=== PATIENT | female | born 1965 | race African-American/Black ===

== ENCOUNTER 2020-10-31 21:33 | Emergency (ER) | payer MEDICAID, OTHER ==
[~2020-10-31] VITALS: Ht 165.1 cm; Wt 73.0 kg
[~2020-10-31 21:33] MED LIST: NORVASC
[2020-10-31] MEDS ORDERED: SODIUM CHLORIDE 0.9% 1,000 ML IV ONE (23:15)
[2020-10-31 23:30] LABS: BASOPHILS % 0.8 % (0.0-2.0); EOSINOPHILS % 1.9 % (0.0-5.0); HEMOGLOBIN. 10.1 g/dL (12.0-16.0); LYMPHOCYTES % 38.1 % (20.0-50.0); MEAN CORPUSCULAR VOLUME 69.9 fL (81.0-99.0); MEAN PLATELET VOLUME 9.6 fl (7.4-10.4); MONOCYTES % 8.6 % (2.0-8.0); NEUTROPHILS % 50.6 % (40.0-76.0); PLATELET 190 x1000/uL (130-400); RED BLOOD CELL COUNT 4.58 mill/uL (4.2-5.4); RED CELL DISTRIBUTION WIDTH 15.6 % (11.6-14.6)
[2020-10-31 23:36] LABS: CHLORIDE 106 mEq/L (98-107)
[2020-10-31 23:44] LABS: PLATELET ESTIMATE NORMAL
[2020-11-01 04:21] VITALS: BP 106/66
== END 2020-11-01 05:20 | disposition short-term general hospital (02) ==
LOC: ER 21:33 → CANBEDREQ 11-01 07:44
DX: R55 Syncope and collapse (principal); R07.2 Precordial pain; R73.9 Hyperglycemia, unspecified; I25.10 Atherosclerotic heart disease of native coronary artery without angina pectoris; D64.9 Anemia, unspecified; Z75.1 Person awaiting admission to adequate facility elsewhere
CPT/HCPCS: 36415; 71045; 80053; 82962; 83880; 84484; 85025; 93005; 96360; 99285; J7030

== ENCOUNTER 2021-12-20 14:17 | Inpatient (IN) | payer MEDICAID, OTHER ==
[~2021-12-20] VITALS: Ht 165.1 cm; Wt 81.6 kg
[2021-12-20 14:59] LABS: BASOPHILS % 0.3 % (0.0-2.0); EOSINOPHILS % 0.8 % (0.0-5.0); HEMATOCRIT. 34.3 % (36.0-48.0); HEMOGLOBIN. 10.5 g/dL (12.0-16.0); LYMPHOCYTES % 22.9 % (20.0-50.0); MEAN CORPUSCULAR HEMOGLOBIN 22.8 pg (28.0-32.0); MEAN CORPUSCULAR VOLUME 74.4 fL (81.0-99.0); MEAN PLATELET VOLUME 9.8 fl (7.4-10.4); MONOCYTES % 5.4 % (2.0-8.0); NEUTROPHILS % 70.6 % (40.0-76.0); PLATELET 187 x1000/uL (130-400); RED BLOOD CELL COUNT 4.62 mill/uL (4.2-5.4); RED CELL DISTRIBUTION WIDTH 16.2 % (11.6-14.6)
[2021-12-20] MEDS ORDERED: SODIUM CHLORIDE 0.9% 1,000 ML IV ONE ×2 (15:00→17:15)
[2021-12-20 15:07] LABS: CHLORIDE 103 mEq/L (98-107)
[2021-12-20 15:18] LABS: BETA HYDROXYBUTYRATE 0.1 mMol/L (0.0-0.3)
[2021-12-20] MEDS ORDERED: DEXTROSE 50% WATER 50ML SYRINGE IV PRN (16:45)
[2021-12-20 16:57] LABS: CLARITY URINE CLEAR (CLEAR); COLOR URINE YELLOW (YELLOW); KETONES URINE NEGATIVE (NEGATIVE); LEUKOCYTE ESTERASE URINE NEGATIVE (NEGATIVE); NITRITE URINE NEGATIVE (NEGATIVE); OCCULT BLOOD URINE NEGATIVE (NEGATIVE); PROTEIN URINE NEGATIVE (NEGATIVE); SPECIFIC GRAVITY URINE 1.017 (1.005-1.030); UROBILINOGEN URINE 0.2 E.U./dL (0.2-1.0)
[2021-12-20] MEDS: BLOOD SUGAR DIAGNOSTIC STRIP TEST SCH ×2 (17:07→20:59)
[2021-12-20] MEDS: INSULIN LISPRO 100 UNITS/ML SUBCUT SCH ×2 (17:25→21:00)
[2021-12-21 04:30] VITALS: BP 136/89
[2021-12-21] MEDS ORDERED: LIP40 PO (05:13)
[2021-12-21] MEDS ORDERED: AMLO10TA4 PO (05:13)
[2021-12-21] MEDS ORDERED: GLIP5TAB12 PO (05:13)
[2021-12-21] MEDS ORDERED: ACETAMINOPHEN 325MG TABLET PO PRN (05:45)
[2021-12-21] MEDS ORDERED: DEXTROSE 50% WATER 50ML SYRINGE IV PRN (05:45)
[2021-12-21] MEDS ORDERED: ONDANSETRON HCL 4MG TABLET PO PRN (05:45)
[2021-12-21] MEDS: BLOOD SUGAR DIAGNOSTIC STRIP TEST SCH ×5 (06:43→21:00)
[2021-12-21 08:00] VITALS: BP 143/87
[2021-12-21] MEDS ORDERED: AMLODIPINE 10MG TABLET PO SCH (09:00)
[2021-12-21 09:06] LABS: BASOPHILS % 0.6 % (0.0-2.0); EOSINOPHILS % 2.5 % (0.0-5.0); HEMATOCRIT. 32.2 % (36.0-48.0); HEMOGLOBIN. 9.9 g/dL (12.0-16.0); LYMPHOCYTES % 32.4 % (20.0-50.0); MEAN CORPUSCULAR HEMOGLOBIN 22.4 pg (28.0-32.0); MEAN CORPUSCULAR VOLUME 72.8 fL (81.0-99.0); MEAN PLATELET VOLUME 9.4 fl (7.4-10.4); MONOCYTES % 6.2 % (2.0-8.0); NEUTROPHILS % 58.3 % (40.0-76.0); PLATELET 203 x1000/uL (130-400); RED BLOOD CELL COUNT 4.42 mill/uL (4.2-5.4); RED CELL DISTRIBUTION WIDTH 15.9 % (11.6-14.6)
[2021-12-21 09:14] LABS: CHLORIDE 103 mEq/L (98-107)
[2021-12-21 09:21] LABS: HDL CHOLESTEROL 52 mg/dL (40-59); LDL CHOLESTEROL 69 mg/dL (5-100)
[2021-12-21] MEDS: ASPIRIN 81MG TABLET PO SCH (09:46)
[2021-12-21] MEDS: INSULIN LISPRO 100 UNITS/ML SUBCUT SCH ×4 (09:47→22:19)
[2021-12-21] MEDS: METFORMIN HCL 500MG TABLET PO SCH ×2 (09:47→18:30)
[2021-12-21] MEDS: INSULIN GLARGINE 100 UNITS/ML SUBCUT SCH ×2 (11:42→22:18)
[2021-12-21 12:00] VITALS: BP 145/88
[2021-12-21 16:00] VITALS: BP 123/78
[2021-12-21 20:00] VITALS: BP 129/84
[2021-12-21] MEDS: ATORVASTATIN CALCIUM 40MG TABLET PO SCH (22:16)
[2021-12-21] MEDS: DILTIAZEM HCL 60MG TABLET PO SCH (22:20)
[2021-12-22] VITALS: BP 114/78
[2021-12-22 04:00] VITALS: BP 122/69
[2021-12-22 06:24] LABS: BASOPHILS % 0.5 % (0.0-2.0); CHLORIDE 104 mEq/L (98-107); EOSINOPHILS % 2.5 % (0.0-5.0); HEMOGLOBIN. 10.3 g/dL (12.0-16.0); LYMPHOCYTES % 38.1 % (20.0-50.0); MEAN CORPUSCULAR HEMOGLOBIN 22.4 pg (28.0-32.0); MEAN CORPUSCULAR VOLUME 72.1 fL (81.0-99.0); MEAN PLATELET VOLUME 9.4 fl (7.4-10.4); MONOCYTES % 7.5 % (2.0-8.0); NEUTROPHILS % 51.4 % (40.0-76.0); PLATELET 216 x1000/uL (130-400); RED BLOOD CELL COUNT 4.58 mill/uL (4.2-5.4); RED CELL DISTRIBUTION WIDTH 16.3 % (11.6-14.6)
[2021-12-22] MEDS: INSULIN LISPRO 100 UNITS/ML SUBCUT SCH ×4 (07:50→21:00)
[2021-12-22] MEDS: DILTIAZEM HCL 60MG TABLET PO SCH (08:03)
[2021-12-22] MEDS: BLOOD SUGAR DIAGNOSTIC STRIP TEST SCH ×4 (08:03→21:34)
[2021-12-22 08:15] VITALS: BP 111/81
[2021-12-22] MEDS: ASPIRIN 81MG TABLET PO SCH (08:31)
[2021-12-22] MEDS: METFORMIN HCL 500MG TABLET PO SCH ×2 (08:31→18:44)
[2021-12-22] MEDS: INSULIN GLARGINE 100 UNITS/ML SUBCUT SCH ×2 (11:50→21:34)
[2021-12-22 12:00] VITALS: BP 111/83
[2021-12-22] MEDS: DILTIAZEM HCL 180MG CAPSULE CD 24HR PO SCH (13:00)
[2021-12-22] MEDS ORDERED: DILT180C66 PO (16:24)
[2021-12-22] MEDS ORDERED: ASPI-1160 PO (16:24)
[2021-12-22 20:00] VITALS: BP 126/85
[2021-12-22] MEDS: ATORVASTATIN CALCIUM 40MG TABLET PO SCH (21:22)
[2021-12-23] VITALS: BP 128/88
[2021-12-23 04:00] VITALS: BP 106/76
[2021-12-23] MEDS: BLOOD SUGAR DIAGNOSTIC STRIP TEST SCH (06:55)
[2021-12-23] MEDS: METFORMIN HCL 500MG TABLET PO SCH (06:56)
[2021-12-23] MEDS: INSULIN LISPRO 100 UNITS/ML SUBCUT SCH (07:01)
[2021-12-23 08:00] VITALS: BP 128/82
[2021-12-23 08:07] LABS: BASOPHILS % 0.4 % (0.0-2.0); EOSINOPHILS % 2.2 % (0.0-5.0); HEMATOCRIT. 31.9 % (36.0-48.0); HEMOGLOBIN. 9.9 g/dL (12.0-16.0); MEAN CORPUSCULAR HEMOGLOBIN 22.6 pg (28.0-32.0); MONOCYTES % 6.7 % (2.0-8.0); NEUTROPHILS % 54.7 % (40.0-76.0); PLATELET 208 x1000/uL (130-400); RED BLOOD CELL COUNT 4.37 mill/uL (4.2-5.4)
[2021-12-23 08:13] LABS: CHLORIDE 105 mEq/L (98-107)
[2021-12-23] MEDS ORDERED: POTASSIUM CHLORIDE 20MEQ TABLET SR PO SCH (08:45)
[2021-12-23] MEDS: ASPIRIN 81MG TABLET PO SCH (09:16)
[2021-12-23] MEDS: DILTIAZEM HCL 180MG CAPSULE CD 24HR PO SCH (09:16)
[2021-12-23] MEDS: INSULIN GLARGINE 100 UNITS/ML SUBCUT SCH (09:59)
[2021-12-23 10:17] VITALS: BP 128/82
== END 2021-12-23 16:02 | disposition home or self-care (01) | DRG 201 ==
LOC: ER 14:17 → MICUSO 12-21 01:38 → 6WST 12-21 04:30
PROVIDERS: ADMIT Internal Medicine; ATTEND Internal Medicine
DX: I47.1 Supraventricular tachycardia (principal); D64.9 Anemia, unspecified; E11.65 Type 2 diabetes mellitus with hyperglycemia; E66.9 Obesity, unspecified; E78.2 Mixed hyperlipidemia; E87.6 Hypokalemia; R77.8 Other specified abnormalities of plasma proteins; I48.91 Unspecified atrial fibrillation; I10 Essential (primary) hypertension; R35.89 Other polyuria; Z79.4 Long term (current) use of insulin; Z79.84 Long term (current) use of oral hypoglycemic drugs; Z83.3 Family history of diabetes mellitus; Z68.30 Body mass index [BMI] 30.0-30.9, adult
CPT/HCPCS: 36415; 71045; 80048; 80053; 80061; 81003; 82010; 82962; 83036; 84145; 84484; 85025; 93005; 93306; 93970; 99291; J1815; J7030

== ENCOUNTER 2023-03-29 21:49 | Emergency (ER) | payer MEDICAID, OTHER ==
[~2023-03-29] VITALS: Ht 167.6 cm; Wt 71.0 kg
[~2023-03-29 21:49] MED LIST changes: +ASPI-1160 PO; +DILT180C66 PO; +GLIP5TAB12 PO; +LIP40 PO; -NORVASC
[2023-03-29 21:58] VITALS: BP 130/84; PULSE 86; RESP 18; TEMP 97.6; O2SAT 99
[2023-03-29 22:59] LABS: BASOPHILS % 0.6 % (0.0-2.0); DIFFERENTIAL COMMENT 0; HEMATOCRIT. 32.9 % (36.0-48.0); HEMOGLOBIN. 10.4 g/dL (12.0-16.0); LYMPHOCYTES % 37.6 % (20.0-50.0); MEAN CORPUSCULAR HEMOGLOBIN 22.5 pg (28.0-32.0); MEAN CORPUSCULAR HGB CONC 31.6 g/dL (31.0-37.0); MEAN PLATELET VOLUME 8.7 fl (7.4-10.4); MONOCYTES % 6.1 % (2.0-8.0); NEUTROPHILS % 50.7 % (40.0-76.0); PLATELET 301 x1000/uL (130-400); RED BLOOD CELL COUNT 4.64 mill/uL (4.2-5.4); RED CELL DISTRIBUTION WIDTH 15.8 % (11.6-14.6); WHITE BLOOD COUNT 6.9 x1000/uL (4.5-11.0)
[2023-03-29 23:06] LABS: CHLORIDE 107 mEq/L (98-107); INDEX HEMOLYSI 1 (1-3); INDEX ICTERIC 1 (1-4); INDEX LIPEMIC 1 (1-3); POTASSIUM 3.4 mEq/L (3.5-5.1); SODIUM 141 mEq/L (136-145)
[2023-03-29 23:18] LABS: ALANINE AMINOTRANSFERASE 74 IU/L (13-61); ALBUMIN 3.5 g/dL (3.4-5.0); ASPARTATE AMINOTRANSFERASE 45 IU/L (15-37); BILIRUBIN TOTAL 0.4 mg/dL (0.1-1.0); CALCIUM 8.6 mg/dL (8.5-10.1); CARBON DIOXIDE 24 mEq/L (21-32); GLUCOSE 62 mg/dL (70-105); NT PRO B-TYPE NATRIURETIC PEP 165 pg/mL (5-125); PROTEIN TOTAL 7.8 g/dL (6.0-8.3); TROPONIN I HIGH SENSITIVITY 7 ng/L (<54); UREA NITROGEN BLOOD 12 mg/dL (7-21)
== END 2023-03-30 00:34 | disposition home or self-care (01) ==
LOC: ER 21:49
DX: R07.89 Other chest pain (principal); I48.91 Unspecified atrial fibrillation; F41.9 Anxiety disorder, unspecified; F32.9 Major depressive disorder, single episode, unspecified; I10 Essential (primary) hypertension
CPT/HCPCS: 36415; 71045; 80053; 83880; 84484; 85025; 93005; 99285